=== PATIENT | female | born 1955 | race Caucasian/White ===

== ENCOUNTER 2019-11-21 14:15 | Observation (INO) ==
[2019-11-21] MEDS ORDERED: Ondansetron 4 MG/2 ML VIAL IVP ONE ×2 (14:26→15:07)
[2019-11-21 15:41] LABS: Basophils % 0.2 %; Eosinophils # 0.1 K/mcL (0.0-0.6); Eosinophils % 0.9 %; Hematocrit 33.5 % (35.3-44.9); Immature Granulocytes % 0.5 % (0-4); Lymphocytes # 1.1 K/mcL (0.6-4.6); Lymphocytes % 8.1 %; Mean Corpuscular HGB Conc 32.8 g/dL (31.6-35.5); Mean Corpuscular Hemoglobin 29.1 pg (28.0-33.3); Mean Corpuscular Volume 88.6 fL (83.0-100.0); Monocytes # 0.4 K/mcL (0.0-1.3); Monocytes % 3.2 %; Neutrophils # 11.3 K/mcL (1.6-8.9); Platelet Count 141 K/mcL (140-400); Red Blood Count 3.78 M/mcL (3.82-4.97); Red Cell Distribution Width 14.6 % (11.5-14.5); Segmented Neutrophils % 87.1 %
[2019-11-21 15:48] LABS: Prothrombin Time 11.4 Seconds (9.4-12.1)
[2019-11-21 15:51] LABS: Activated Partial Thrombo Time 27.2 Seconds (26.0-36.0)
[2019-11-21 15:58] LABS: Albumin 3.5 g/dL (3.5-5.7); Albumin/Globulin Ratio 1.1 (1.1-2.2); Bilirubin,Direct 0.1 mg/dL (0.0-0.2); Bilirubin,Total 1.1 mg/dL (0.3-1.0); Globulin 3.3 g/dL (2.4-3.5); Magnesium 1.9 mg/dL (1.6-2.6); Total Protein 6.8 g/dL (6.4-8.9)
[2019-11-21 15:59] LABS: BUN/Creatinine Ratio 5 (6-26); Blood Urea Nitrogen 13 mg/dL (8-23); Calcium 8.6 mg/dL (8.6-10.3); Carbon Dioxide 26 mEq/L (23-29); Chloride 98 mEq/L (98-107); Glucose 367 mg/dL (70-105); Osmolality,Calculated 295 (280-300); Potassium 3.8 mEq/L (3.5-5.1); Sodium 135 mEq/L (136-145); eGFR For African Americans 24 (> 60); eGFR For Non-African Americans 20 (> 60)
[2019-11-21 16:00] LABS: Troponin I < 0.03 ng/mL (< 0.04)
[2019-11-21 16:00] LABS: Bilirubin,Urine Negative (Negative); Blood,Urine Trace-intact (Negative); Clarity,Urine Clear (Clear); Color,Urine Yellow (Yellow); Glucose,Urine (UA) >=1000 mg/dL (Normal); Ketones,Urine Negative (Negative); Leukocyte Esterase,Urine Negative (Negative); Nitrite,Urine Negative (Negative); Protein,Urine >=300 mg/dL (Neg-Trace); Urobilinogen,Urine Normal (Normal)
[2019-11-21 16:09] LABS: Squamous Epithelial Cell,Urine None Seen per hpf (None-Few); WBC,Urine 0-3 per hpf (0-3)
[2019-11-21 16:10] LABS: Hyaline Casts,Urine Few per lpf (None Seen); Mucus,Urine Few per lpf (None-Few); Transitional Epi Cells,Urine Few per hpf (None-Few)
[2019-11-21] MEDS ORDERED: Ondansetron 4 MG/2 ML VIAL IVP PRN (16:52)
[2019-11-21] MEDS ORDERED: Naloxone 0.4 MG/ML INJ IVP PRN (16:52)
[2019-11-21] MEDS ORDERED: Acetaminophen 325 MG TABLET PO PRN (16:52)
[2019-11-21] MEDS ORDERED: Metoclopramide 10 MG/2 ML VIAL IVP ONE (17:01)
[2019-11-21] MEDS ORDERED: Insulin LISPRO 300 UNITS/3 ML VIAL SQ SCH (21:00)
[2019-11-22 03:27] LABS: Basophils % 0.4 %; Eosinophils # 0.2 K/mcL (0.0-0.6); Eosinophils % 1.5 %; Hematocrit 32.6 % (35.3-44.9); Hemoglobin 10.6 g/dL (11.5-15.4); Immature Granulocytes % 0.9 % (0-4); Lymphocytes # 3.2 K/mcL (0.6-4.6); Lymphocytes % 29.3 %; Mean Corpuscular HGB Conc 32.5 g/dL (31.6-35.5); Mean Corpuscular Hemoglobin 29.5 pg (28.0-33.3); Mean Corpuscular Volume 90.8 fL (83.0-100.0); Mean Platelet Volume 12.1 fL (9.4-12.4); Monocytes # 0.7 K/mcL (0.0-1.3); Monocytes % 6.6 %; Neutrophils # 6.7 K/mcL (1.6-8.9); Platelet Count 150 K/mcL (140-400); Red Blood Count 3.59 M/mcL (3.82-4.97); Red Cell Distribution Width 14.6 % (11.5-14.5); Segmented Neutrophils % 61.3 %; White Blood Count 10.8 K/mcL (4.3-11.1)
[2019-11-22 07:44] LABS: Albumin 3.4 g/dL (3.5-5.7); Albumin/Globulin Ratio 1.1 (1.1-2.2); Bilirubin,Total 0.9 mg/dL (0.3-1.0); Calcium 8.4 mg/dL (8.6-10.3); Chol/HDL Ratio 3.6 (0-4.9); Potassium 4.1 mEq/L (3.5-5.1); Total Protein 6.4 g/dL (6.4-8.9)
[2019-11-22] MEDS ORDERED: Sennosides 8.6 MG TABLET PO PRN (08:48)
[2019-11-22] MEDS ORDERED: Ondansetron ODT 4 MG TAB.RAPDIS SL PRN (08:48)
[2019-11-22] MEDS ORDERED: carvediloL 25 MG TABLET PO SCH (09:00)
[2019-11-22] MEDS ORDERED: calcitrioL 0.25 MCG CAPSULE PO SCH (09:00)
[2019-11-22] MEDS ORDERED: amLODIPine 5 MG TABLET PO SCH (09:00)
[2019-11-22] MEDS ORDERED: Gabapentin 100 MG CAPSULE PO SCH (09:00)
[2019-11-22] MEDS ORDERED: Furosemide 40 MG TABLET PO SCH (09:00)
[2019-11-22] MEDS: Insulin LISPRO 300 UNITS/3 ML VIAL SQ SCH ×2 (09:29→12:26)
[2019-11-22 11:05] VITALS: BP 151/82
== END 2019-11-22 16:00 | disposition home health service (06) ==
LOC: EMEROOPIK 14:15 → INPPIK 14:15
PROVIDERS: ADMIT Family Medicine; ATTEND Family Medicine